=== PATIENT | female | born 1975 | race Caucasian/White ===

== ENCOUNTER 2019-09-10 05:55 | Emergency (ER) | payer OTHER ==
[~2019-09-10] VITALS: Ht 170.2 cm; Wt 68.0 kg
[~2019-09-10 05:55] MED LIST: BACTRIM DS TAB1 EACH PO; FLEXERIL PO; HYDROCODON-ACE1 EAC7 PO; IBUPROFEN 800800 MG PO; INDOMETHACIN 2525 MG PO; LAMICTAL XR100 MG PO; LORTAB 5 MG/5001 TA1 PO; MACROBID 100 M100 M1 PO; NOHOMEMEDICATIONS; NORCO 5-325 TA1 EACH PO; PEPCID20 MG PO; PERCOCET 5-3251 EACH PO; PHENERGAN 25 MG25 M1 PO; PHENERGAN 25 MG25 MG PO; PROMETHAZINE HC25 M2 PO; PROMETHAZINE12.5 M1 PO; PROZAC40 MG PO; PYRIDIUM200 MG PO; ROBAXIN500 MG PO; SENEXON-S TABL1 EACH PO; VICODIN 5-5001 EACH PO; XANAX XR2 MG; ZOFRAN ODT4 MG PO; ZOFRAN4 MG PO; ZPAK PO
[2019-09-10] MEDS ORDERED: SERTRALINE HCL50 MG PO (06:05)
[2019-09-10] MEDS ORDERED: NORCO 5-325 TA1 EAC1 PO (06:32)
[2019-09-10 06:39] VITALS: BP 165/104
== END 2019-09-10 06:39 | disposition home or self-care (01) ==
LOC: M.ERS 05:55
DX: S40.011A Contusion of right shoulder, initial encounter (principal); G43.909 Migraine, unspecified, not intractable, without status migrainosus; F17.210 Nicotine dependence, cigarettes, uncomplicated; Z88.0 Allergy status to penicillin; Z88.1 Allergy status to other antibiotic agents; Z88.2 Allergy status to sulfonamides; Z88.8 Allergy status to other drugs, medicaments and biological substances; Z98.890 Other specified postprocedural states; Z90.89 Acquired absence of other organs; Z98.51 Tubal ligation status; Z90.710 Acquired absence of both cervix and uterus; W01.0XXA Fall on same level from slipping, tripping and stumbling without subsequent striking against object, initial encounter; Y93.89 Activity, other specified; Y92.89 Other specified places as the place of occurrence of the external cause; Y99.8 Other external cause status